=== PATIENT | female | born 1995 | race Caucasian/White ===

== ENCOUNTER 2024-04-30 14:26 | Outpatient (CLI) | payer OTHER, SELFPAY ==
--- NOTE | 2024-04-30 14:29 | US_ITS ---
FINAL REPORT TECHNIQUE: Real-time grayscale and color ultrasound of the thyroid was performed. CLINICAL HISTORY: ABNORMAL TSH COMPARISON: None FINDINGS: The thyroid gland is diffusely heterogeneous and lobular. It measures 54 x 26 x 22 mm on the right and 51 x 21 x 23 mm on the left. The isthmus measures 7 mm. Nodules: No discrete mass identified. IMPRESSION: Diffusely heterogeneous and lobular thyroid with no discrete mass, probably due to diffuse goiter consistent with TR 1. No follow-up required per TI-RADS criteria. Reviewed, Interpreted and Dictated by Jacky Rawls MD Transcribed by Narcisa Pacheco Authenticated and [facility]
== END 2024-04-30 23:59 | disposition home or self-care (01) ==
LOC: RAD 14:27
PROVIDERS: PCP Family Medicine; Visit Provider Family Medicine
DX: M79.89 Other specified soft tissue disorders (principal); M54.2 Cervicalgia
CPT/HCPCS: 76536

== ENCOUNTER 2025-01-04 15:26 | Outpatient (CLI) | payer OTHER, SELFPAY ==
--- NOTE | 2025-01-04 15:51 | XR_ITS ---
FINAL REPORT CLINICAL HISTORY: LLQ PAIN COMPARISON: None FINDINGS: 2 views of the abdomen demonstrate a nonobstructive bowel gas pattern. There is a moderate amount of stool in the colon. There are no abnormally dilated loops of small bowel. There is no free air. There are no abnormal calcifications. IMPRESSION: Moderate stool burden. Reviewed, Interpreted and Dictated by Jacky Rawls MD Transcribed by Casi Pineda Authenticated and [facility]
[2025-01-04 16:17] LABS: Occult Blood,Stool Negative (Negative)
[2025-01-04 16:30] LABS: Chloride 106 mmol/L (98-107)
[2025-01-04 16:31] LABS: Albumin Level 4.4 g/dl (3.5-5.0); Sodium 138 mmol/L (136-145)
[2025-01-04 16:34] LABS: Alanine Aminotransferase 19 U/L (12-78); Albumin/Globulin Ratio 1.6 (1.1-1.8); Alkaline Phosphatase 79 U/L (38-126); Aspartate Amino Transferase 25 U/L (14-36); Bilirubin,Total 0.3 mg/dl (0.2-1.3); Blood Urea Nitrogen 15 mg/dl (7-17); Carbon Dioxide 24 mmol/L (22.0-30.0); Estimated Glomerular Filt Rate 84 ml/min (>60); GFR (African American) 102 ML/MIN (>60); Globulin 2.7 g/dL (1.3-3.2); Glucose 118 mg/dl (74-100); Total Protein,Serum 7.1 g/dl (6.3-8.2)
[2025-01-05 09:24] LABS: Immunoglobulin A, Qn 146 mg/dL (87-352)
[2025-01-05 13:10] LABS: Tissue Transglutaminase IgA Ab <2 U/mL (0-3); Tissue Transglutaminase IgG Ab 3 U/mL (0-5)
== END 2025-01-04 23:59 | disposition home or self-care (01) ==
LOC: RAD 15:30
PROVIDERS: PCP Family Medicine; Visit Provider Nurse Practitioner Acute Care
DX: R10.32 Left lower quadrant pain (principal); M79.18 Myalgia, other site; N94.89 Other specified conditions associated with female genital organs and menstrual cycle
CPT/HCPCS: 36415; 74019; 80053; 82272; 82784; 83516; G0328